=== PATIENT | male | born 1975 | race Caucasian/White ===

== ENCOUNTER → 2020-08-29 | Outpatient (CLI) | payer MEDICAID ==
--- NOTE | 2020-08-29 09:40 | MR ---
EXAMINATION TYPE: MR cervical spine wo con DATE OF EXAM: 08/29/2020 COMPARISON: None HISTORY: Neck pain, weakness lt ue, pain into left shoulder TECHNIQUE: Multiplanar, multisequence images of the cervical spine were acquired. C2-C3: Degenerative disc disease with mild central disc bulging but no evidence of canal stenosis or foraminal encroachment. Mild uncovertebral joint hypertrophy. C3-C4: Degenerative disc disease with broad-based disc bulging. Bilateral uncovertebral joint hypertr ophy with mild bilateral foraminal encroachment. No Canal stenosis. C4-C5: Degenerative disc disease with uncovertebral joint hypertrophy and mild central disc bulging. No Canal stenosis. Mild bilateral foraminal encroachment. C5-C6: Degenerative disc disease with mild uncovertebral joint hypertrophy but no evidence of canal s tenosis or disc herniation. Neural foramina remain patent C6-C7: Degenerative disc disease with left paracentral and lateral disc herniation. Effacement of the familia sac and severe left-sided foraminal encroachment. Nerve root impingement suspected. Facet arthrop athy noted. Hypertrophic spurring and uncovertebral joint hypertrophy. C7-T1: No evidence for degenerative disc disease. No disc bulge/herniation or protrusion. No Canal stenosis. Foramina are patent bilaterally. Cervical segments are intact. There is normal alignment. Cervical spinal cord is of normal signal. Craniovertebral junction relationships are within normal limits. IMPRESSION: 1. Broad-based disc bulging C6-C7 with left paracentral and lateral disc herniation resulting in valdez re left foraminal encroachment suspected nerve root impingement. Effacement of thecal sac and abutmen t of the anterior margin of the spinal cord also noted. Small component of extruded disc fragment not excluded. 2. Multilevel degenerative disc disease and hypertrophic changes with mild multilevel foraminal encro achment as discussed above.
== END | disposition home or self-care (01) ==
LOC: RADMRIMAIN 08:43
PROVIDERS: ATTEND Orthopaedic Surgery Orthopaedic Surgery of the Spine
DX: M50.223 Other cervical disc displacement at C6-C7 level (principal); M50.323 Other cervical disc degeneration at C6-C7 level; M47.812 Spondylosis without myelopathy or radiculopathy, cervical region; M99.71 Connective tissue and disc stenosis of intervertebral foramina of cervical region
CPT/HCPCS: 72141